=== PATIENT | female | born 1950 | race Caucasian/White ===

== ENCOUNTER 2018-06-02 10:58 | Day surgery (SDC) | payer MEDICARE ==
[~2018-06-02] VITALS: Ht 160 cm; Wt 140.5 kg
--- NOTE | ~2018-06-02 | OP ---
PATIENT NAME: NEO PASCUAL MEDICAL RECORD: [id number] :48 LOCATION:[facility] ADMISSION DATE: SURGEON: KALYANI DOBBS DO DATE OF OPERATION: 06/02/2018 PROCEDURE: Colonoscopy with polypectomy. INDICATIONS FOR PROCEDURE: Screening for colorectal cancer. SCOPE: Olympus video pediatric colonoscope. MEDICATIONS: Propofol 800 mg IV per anesthesia. WITHDRAWAL TIME: 21 minutes. ESTIMATED BLOOD LOSS: Minimal. COMPLICATIONS: None. FINDINGS: Informed consent was given. The patient was made comfortable with the above medication. After reaching an adequate level of sedation by slow IV push, the patient was placed on her left side. A digital rectal examination was performed and was normal. The endoscope was then advanced under direct visualization through the rectum to the cecum, confirmed by the presence of the appendiceal orifice and ileocecal valve. In the cecum, within the appendiceal orifice itself, there was a polyp, which measured approximately 1 cm in size. It was buried somewhat beneath folds within the orifice itself. A saline injection was performed to lift the polyp for better visualization of the borders as well as to lift it off the wall of the colon. Once adequate lift was obtained, a hot snare was used to resect this polyp in 2 pieces. There was another polyp in the ascending colon, which was a benign appearing polyp, which was diminutive. It was removed using hot forceps in 1 piece. 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 Retroflexion was performed in the rectum with grade I internal hemorrhoids. No active bleeding. The endoscope was withdrawn from the patient. The patient tolerated the procedure well and there were no complications. IMPRESSION: 1. Two polyps as described above, removed using a combination of EMR technique and hot forceps. 2. Grade I internal hemorrhoids without bleeding. 3. Melanosis coli. PLAN AND RECOMMENDATIONS: 1. Discharge home when recovery parameters are met. 2. Follow up biopsy specimen results. 3. High fiber diet. 4. Continue current medications. 5. Recall colonoscopy in 2-3 years based on size, number of polyps, and location of polyps removed on today's examination. TRANSINT:[id number] Voice Confirmation ID: [id number] DOCUMENT ID: [id number] OPERATIVE REPORT [id number] NEO PASCUAL KALYANI DOBBS DO CC: [id number] DICTATION DATE: 06/02/18 1346 TERMITE CONTROL TECHNICIAN: 06/02/[address] [facility] [address] [employer] [place]901
[2018-06-02 11:22] LABS: HEMATOCRIT 37.9 % (36.0-48.0); HEMOGLOBIN 11.8 g/dL (12-16); MCH 25.8 pg (26.0-34.0); MCHC 31.1 g/dL (31.0-37.0); MCV 82.8 fL (80.0-100.0); MEAN PLATELET VOLUME 9.4 fL (7.4-10.4); RBC 4.58 10x6/uL (4.00-5.40); RDW 16.4 % (11.5-14.5); WBC 9.2 10x3/uL (4.8-10.8)
[2018-06-02 11:35] LABS: INR 1.17 (0.85-1.17); PROTIME 14.4 SECONDS (11.6-15.0)
[2018-06-02 11:36] LABS: APTT 34.7 SECONDS (22.8-39.4)
[2018-06-02] MEDS ORDERED: SAPHRIS5 MG SL (11:42)
[2018-06-02] MEDS ORDERED: ZANAFLEX4 MG PO (11:43)
[2018-06-02] MEDS ORDERED: TRAZODONE HCL150 MG PO (11:44)
[2018-06-02] MEDS ORDERED: LIPITOR10 MG PO (11:44)
[2018-06-02] MEDS ORDERED: ALENDRONAT70 MG/75 M PO (11:45)
[2018-06-02] MEDS ORDERED: SUPER B-COMPLEX PO (11:46)
[2018-06-02] MEDS ORDERED: [UNRECOGNIZED DRUG - REMARK] (11:47)
[2018-06-02] MEDS ORDERED: CALCIUM 600 +1 EAC3 PO (11:47)
[2018-06-02] MEDS ORDERED: OMEPRAZOLE20 M1 PO (11:48)
[2018-06-02] MEDS ORDERED: VESICARE10 MG PO (11:48)
[2018-06-02] MEDS ORDERED: MOVANTIK25 MG PO (11:49)
[2018-06-02] MEDS ORDERED: CYMBALTA60 MG PO (11:49)
[2018-06-02] MEDS ORDERED: XARELTO20 MG (11:49)
[2018-06-02] MEDS ORDERED: CARAFATE1 G PO (11:50)
[2018-06-02] MEDS ORDERED: GLIMEPIRIDE4 MG PO (11:50)
[2018-06-02] MEDS ORDERED: GLUCOPHAGE850 MG PO (11:50)
[2018-06-02] MEDS ORDERED: TRULICITY1.5 MG/0.5 SC (11:51)
[2018-06-02] MEDS ORDERED: LEVEMIR IN100 UNITS/ SC (11:52)
[2018-06-02] MEDS ORDERED: MYLANTA / MAALO30 ML PO (11:53)
[2018-06-02] MEDS ORDERED: HYDROCODON-ACE1 EA10 PO (11:54)
[2018-06-02 11:55] LABS: CALC OSMOLALITY 286 mosm/kg (275-300); CALCIUM 8.6 mg/dL (8.5-10.1); CARBON DIOXIDE 27.2 mmol/L (21.0-32.0); CHLORIDE - SERUM 104 mmol/L (98-107); CREATININE - SERUM 0.7 mg/dL (0.6-1.3); GLUCOSE 155 mg/dL (74-106); POTASSIUM - SERUM 3.9 mmol/L (3.5-5.1); SODIUM 143 mmol/L (136-145); UREA NITROGEN 9 mg/dL (7-18); eGFR NON AFRICAN AMERICAN 88 mL/min (90-120)
[2018-06-02 12:06] VITALS: BP 151/86; Ht 160 cm; Wt 140.5 kg
== END 2018-06-02 14:36 | disposition home or self-care (01) ==
LOC: D.OPS 10:58
PROVIDERS: Anesthesiology; ATTEND Internal Medicine Gastroenterology
DX: Z12.11 Encounter for screening for malignant neoplasm of colon (principal); D12.0 Benign neoplasm of cecum; K63.5 Polyp of colon; K64.0 First degree hemorrhoids; K63.89 Other specified diseases of intestine; Z01.812 Encounter for preprocedural laboratory examination

== ENCOUNTER → 2018-06-04 05:28 | Day surgery (SDC) | payer MEDICARE ==
[2018-06-02 12:06] VITALS: BMI 54.8
[~2018-06-04 05:28] MED LIST: ALENDRONAT70 MG/75 M PO; CALCIUM 600 +1 EAC3 PO; CARAFATE1 G PO; CYMBALTA60 MG PO; GLIMEPIRIDE4 MG PO; GLUCOPHAGE850 MG PO; HYDROCODON-ACE1 EA10 PO; LEVEMIR IN100 UNITS/ SC; LIPITOR10 MG PO; MOVANTIK25 MG PO; MYLANTA / MAALO30 ML PO; OMEPRAZOLE20 M1 PO; SAPHRIS5 MG SL; SUPER B-COMPLEX PO; TRAZODONE HCL150 MG PO; TRULICITY1.5 MG/0.5 SC; VESICARE10 MG PO; XARELTO20 MG; ZANAFLEX4 MG PO; [UNRECOGNIZED DRUG - REMARK]
[2018-06-04 06:44] LABS: BASOPHILS 0.3 % (0-2); EOSINOPHILS 1.1 % (0-7); HEMATOCRIT 34.9 % (36.0-48.0); HEMOGLOBIN 10.7 g/dL (12-16); IMMATURE GRANULOCYTES 0.1 % (0-5); LYMPHOCYTES 19.3 % (15-50); MCH 25.7 pg (26.0-34.0); MCHC 30.7 g/dL (31.0-37.0); MCV 83.7 fL (80.0-100.0); MEAN PLATELET VOLUME 10.1 fL (7.4-10.4); MONOCYTES 8.2 % (2-11); PLATELET COUNT 171 10x3/uL (130-400); RBC 4.17 10x6/uL (4.00-5.40); RDW 16.1 % (11.5-14.5); WBC 7.4 10x3/uL (4.8-10.8)
[2018-06-04 06:50] LABS: APTT 36.8 SECONDS (22.8-39.4); INR 1.13 (0.85-1.17)
[2018-06-04 07:01] LABS: ALBUMIN 3.3 g/dL (3.4-5.0); ALKALINE PHOSPHATASE 83 U/L (46-116); ALT (SGPT) 34 U/L (10-68); BILIRUBIN - TOTAL 0.28 mg/dL (0.2-1.3); CALC OSMOLALITY 281 mosm/kg (275-300); CALCIUM 8.8 mg/dL (8.5-10.1); CARBON DIOXIDE 26.1 mmol/L (21.0-32.0); CHLORIDE - SERUM 102 mmol/L (98-107); CREATININE - SERUM 0.6 mg/dL (0.6-1.3); GLUCOSE 173 mg/dL (74-106); POTASSIUM - SERUM 3.8 mmol/L (3.5-5.1); PROTEIN - SERUM 6.7 g/dL (6.4-8.2); SODIUM 139 mmol/L (136-145); eGFR NON AFRICAN AMERICAN > 90 mL/min (90-120)
[2018-06-04 07:04] LABS: UREA NITROGEN 12 mg/dL (7-18)
== END | disposition home or self-care (01) ==
LOC: D.OPS 05:28
PROVIDERS: Anesthesiology; ATTEND Internal Medicine Gastroenterology
DX: R12 Heartburn (principal); R11.2 Nausea with vomiting, unspecified; K21.0 Gastro-esophageal reflux disease with esophagitis; K29.70 Gastritis, unspecified, without bleeding; K44.9 Diaphragmatic hernia without obstruction or gangrene

== ENCOUNTER 2018-06-04 05:50 | Day surgery (SDC) | payer MEDICARE ==
[~2018-06-04] VITALS: Ht 160 cm; Wt 140.5 kg
--- NOTE | ~2018-06-04 | OP ---
PATIENT NAME: NEO PASCUAL MEDICAL RECORD: [id number] :48 LOCATION:[facility] ADMISSION DATE: SURGEON: KALYANI DOBBS DO DATE OF OPERATION: 06/04/2018 PROCEDURE: EGD with biopsies. INDICATIONS FOR PROCEDURE: Heartburn, nausea, vomiting, epigastric pain. SCOPE: Olympus video gastroscope. MEDICATIONS: Propofol 160 mg IV per anesthesia. ESTIMATED BLOOD LOSS: Minimal. COMPLICATIONS: None. FINDINGS: Informed consent was given. The patient was made comfortable with the above medication. After reaching an adequate level of sedation by slow IV push, the patient was placed in the left side. The endoscope was advanced under direct visualization through the mouth to the second portion of the duodenum. The upper, middle, and lower thirds of the esophagus appeared normal. At the GE junction, there was evidence of LA class A reflux induced esophagitis with a few ulcerations. A cold forceps biopsy was taken of this site to submit for histology. The endoscope was advanced beyond the GE junction into the stomach and retroflexed to view the cardia, where a very small hiatal hernia of the sliding type was present. The fundus appeared normal. Throughout the body and antrum of the stomach, there were patchy areas of erythema and granularity consistent with gastritis. In the prepyloric region, there were a few inflammatory reactive-appearing polyps. A biopsy was taken of one of these sites to submit for histology. Random cold forceps biopsies were taken from the antrum and incisura to submit for histopathology and to rule out the presence of H. pylori. The endoscope was advanced beyond the pylorus into the duodenum which appeared normal down to the second portion. The endoscope was then withdrawn from the patient. The patient tolerated the procedure well and there were no complications. IMPRESSIONS: 1. LA class A reflux-induced esophagitis with a few ulcerations. 2. Small sliding hiatal hernia. 3. Gastritis. 4. Reactive gastric polyps, which were biopsied. PLAN AND RECOMMENDATIONS: 1. Discharge home when recovery parameters are met. 2. GERD diet and reflux precautions. 3. Continue current medications, but increase omeprazole to 40 mg daily. 4. Gastric emptying scan regarding the ongoing abdominal pain and nausea and vomiting. 5. Follow up biopsies and treat if indicated for H. pylori. TRANSINT:[id number] Voice Confirmation ID: [id number] DOCUMENT ID: [id number] OPERATIVE REPORT [id number] NEO PASCUAL NATHAN A DO CC: [id number] DICTATION DATE: 06/04/18 0806 COMMUTATOR REPAIRER: 06/04/18 1126 [facility] 06/04/18 [place] [id number] [place] [id number]
[2018-06-04 06:22] VITALS: Ht 160 cm; Wt 140.5 kg
--- NOTE | 2018-06-04 08:58 | NUR ---
PT IN PERSONAL WC WITHOUT COMPLAINTS. VSS. TOLERATING FULL LIQUIDS. IC DC'D INTACT. DISCHARGE INSTRUCTIONS GIVEN AND VERBALIZED AN UNDERSTANDING.
== END 2018-06-04 08:50 | disposition home or self-care (01) ==
LOC: D.OPS 05:50
PROVIDERS: ATTEND Internal Medicine Gastroenterology
DX: K21.0 Gastro-esophageal reflux disease with esophagitis (principal); K44.9 Diaphragmatic hernia without obstruction or gangrene; K22.10 Ulcer of esophagus without bleeding; K29.50 Unspecified chronic gastritis without bleeding; K31.7 Polyp of stomach and duodenum; Z01.812 Encounter for preprocedural laboratory examination

== ENCOUNTER 2019-12-08 11:46 | Inpatient (IN) | payer MEDICARE ==
[~2019-12-08] VITALS: Ht 160 cm; Wt 141.8 kg
[2019-12-08 15:04] LABS: CALC OSMOLALITY 273 mosm/kg (275-300); CALCIUM 8.3 mg/dL (8.5-10.1); CARBON DIOXIDE 26.5 mmol/L (21.0-32.0); CHLORIDE - SERUM 105 mmol/L (98-107); CREATININE - SERUM 0.8 mg/dL (0.6-1.3); POTASSIUM - SERUM 3.9 mmol/L (3.5-5.1); SODIUM 137 mmol/L (136-145); UREA NITROGEN 12 mg/dL (7-18); eGFR NON AFRICAN AMERICAN 75 mL/min (90-120)
[2019-12-08 15:05] LABS: GLUCOSE 102 mg/dL (74-106)
[2019-12-08 15:07] LABS: ALBUMIN 3.2 g/dL (3.4-5.0); ALKALINE PHOSPHATASE 63 U/L (30-120); ALT (SGPT) 18 U/L (10-68); BASOPHILS 0.1 % (0-2); BILIRUBIN - TOTAL 0.22 mg/dL (0.2-1.3); EOSINOPHILS 0.7 % (0-7); HEMATOCRIT 23.3 % (36.0-48.0); IMMATURE GRANULOCYTES 0.3 % (0-5); LYMPHOCYTES 12.8 % (15-50); MCH 21.3 pg (26.0-34.0); MCV 78.7 fL (80.0-100.0); MEAN PLATELET VOLUME 9.3 fL (7.4-10.4); MONOCYTES 9.5 % (2-11); NEUTROPHILS 76.6 % (40-80); PLATELET COUNT 203 10x3/uL (130-400); PROTEIN - SERUM 6.5 g/dL (6.4-8.2); RBC 2.96 10x6/uL (4.00-5.40); RDW 17.9 % (11.5-14.5); WBC 7.4 10x3/uL (4.8-10.8)
[2019-12-08 15:10] LABS: HEMOGLOBIN 6.3 g/dL (12-16)
[2019-12-08 15:36] VITALS: BP 155/55; BMI 55.3
--- NOTE | 2019-12-08 17:36 | NUR ---
STARTED PATIENT BLOOD IN RT HAND. NO S/SX OF DISTRESSNO NEEDS, PT HAS DINNER TRAY IN FRONT OF HER, CONTINUE WITH PLAN OF CARE
[2019-12-08 18:09] VITALS: BP 160/62
[2019-12-08 19:35] LABS: % SATURATION 3 % (15-55); IRON 13 ug/dl (35-150); TOTAL IRON BIND CAPACITY 407 ug/dl (260-445); UNSAT IRON BIND CAPACITY 394 ug/dl (150-375)
[2019-12-08 20:00] VITALS: BP 145/60
[2019-12-08 21:26] VITALS: Ht 160 cm; Wt 141.8 kg
[2019-12-09 09:21] VITALS: BP 186/60
--- NOTE | 2019-12-09 10:29 | NUR ---
ASSESSMENT PER FLOW SHEET. PATIENT IS NPO FOR PROCEDURE. PAIN MEDS ORDERED FOR PAIN.FALL PREVENTION WITH SHUBHAM MAT
[2019-12-09 11:53] LABS: BASOPHILS 0.2 % (0-2); EOSINOPHILS 0.3 % (0-7); IMMATURE GRANULOCYTES 0.2 % (0-5); LYMPHOCYTES 12.8 % (15-50); MCH 23.1 pg (26.0-34.0); MCHC 29.1 g/dL (31.0-37.0); MCV 79.4 fL (80.0-100.0); MEAN PLATELET VOLUME 8.9 fL (7.4-10.4); MONOCYTES 9.8 % (2-11); NEUTROPHILS 76.7 % (40-80); PLATELET COUNT 172 10x3/uL (130-400); RBC 3.55 10x6/uL (4.00-5.40); RDW 17.4 % (11.5-14.5); WBC 6.6 10x3/uL (4.8-10.8)
[2019-12-09 11:55] LABS: HEMOGLOBIN 8.2 g/dL (12-16)
[2019-12-09 11:56] LABS: HEMATOCRIT 28.2 % (36.0-48.0)
[2019-12-09 12:38] VITALS: BP 154/70
--- NOTE | 2019-12-09 16:09 | NUR ---
EKG IN CHART. DONE BEFORE GI PROCEDURE
[2019-12-10 00:21] VITALS: BP 141/63
[2019-12-10 04:00] VITALS: BP 108/57
--- NOTE | 2019-12-10 05:56 | NUR ---
I have reviewed this patient and I concur with the Shift Assessment completed by the Licensed Practical Nurse today this shift.
[2019-12-10 08:25] LABS: BASOPHILS 0.1 % (0-2); EOSINOPHILS 0.3 % (0-7); HEMATOCRIT 30.6 % (36.0-48.0); HEMOGLOBIN 8.9 g/dL (12-16); IMMATURE GRANULOCYTES 0.1 % (0-5); LYMPHOCYTES 11.4 % (15-50); MCH 23.2 pg (26.0-34.0); MCHC 29.1 g/dL (31.0-37.0); MCV 79.7 fL (80.0-100.0); MEAN PLATELET VOLUME 8.8 fL (7.4-10.4); MONOCYTES 7.3 % (2-11); NEUTROPHILS 80.8 % (40-80); PLATELET COUNT 157 10x3/uL (130-400); RBC 3.84 10x6/uL (4.00-5.40); WBC 7.3 10x3/uL (4.8-10.8)
[2019-12-10 08:35] LABS: CALC OSMOLALITY 280 mosm/kg (275-300); CALCIUM 8.4 mg/dL (8.5-10.1); CARBON DIOXIDE 29.2 mmol/L (21.0-32.0); CHLORIDE - SERUM 105 mmol/L (98-107); CREATININE - SERUM 0.6 mg/dL (0.6-1.3); POTASSIUM - SERUM 3.8 mmol/L (3.5-5.1); SODIUM 140 mmol/L (136-145); UREA NITROGEN 11 mg/dL (7-18); eGFR NON AFRICAN AMERICAN > 90 mL/min (90-120)
[2019-12-10 08:36] LABS: GLUCOSE 151 mg/dL (74-106)
[2019-12-10 09:02] VITALS: BP 142/78
[2019-12-10 11:51] VITALS: BP 191/70
[2019-12-10 17:50] VITALS: BP 154/62
--- NOTE | 2019-12-10 19:50 | NUR ---
0700 BEDSIDE REPORT RECEIVED IN BED WITH HOB ELEVATED 40 DEGREES ASSISTED UP TO BEDSIDE COMMODE ASSESSMENT COMPLETE
--- NOTE | 2019-12-10 19:52 | NUR ---
1045 SMALL SPECIMEN OF STOOL COLLECTED AND SENT TO LAB
--- NOTE | 2019-12-10 19:52 | NUR ---
1815 LEFT HAND IV INFILTRATED STOPPED INFUSION AND WILL START ANOTHER IV SITE
[2019-12-10 20:00] VITALS: BP 115/60
--- NOTE | 2019-12-10 20:00 | NUR ---
PATIENT RESTING IN BED WATCHING TV. NO S/S OF ACUTE DISTRESS. NO C/O AT THIS TIME. PATIENT USES HOME BIPAP WHEN SLEEPING. PATEINT HAS NO IV AT THIS TIME, WILL TRY TO PLACE ANOTHER. PATIENT IS UP WITH ASSIST, BUT IS REFUSING THE BEDSIDE COMMODE BECAUSE "IT PINCHES ME TOO BAD." PATIENT USES THE BEDPAN. CALL LIGHT WITHIN REACH. WILL CONTINUE TO MONITOR.
--- NOTE | 2019-12-10 21:40 | NUR ---
ANDREINA, RN-CHARGE, GOT AN IV IN LEFT FOREARM. CALL LIGHT WITHIN REACH. WILL CONTINUE TO MONITOR.
[2019-12-11] VITALS: BP 142/45
[2019-12-11 04:00] VITALS: BP 168/57
--- NOTE | 2019-12-11 04:24 | NUR ---
I have reviewed this patient and I concur with the Shift Assessment completed by the Licensed Practical Nurse today this shift.
--- NOTE | 2019-12-11 09:00 | NUR ---
ALERT AND ORIENTED X3.LUNGS CTA WITH EDEMA 1+ NOTED TO BLE. NO DISTRESS NOTED WITH IV INTACT TO LEFT F/A S/L WITH NO S/S OF INFECTION/INFILTRATON. DENIES ANY PAIN OR DISCOMFORT AT TH IS TIME.
[2019-12-11 09:03] VITALS: BP 151/65
--- NOTE | 2019-12-11 10:15 | MORECARE ---
CASE MANAGEMENT DISCHARGE SUMMARY PATIENT: NEO PASCUAL UNIT: [id number] ADM DATE: 12/08/19 AGE: 69 : 49 SEX: F ROOM/BED: D.8356 AUTHOR: MARYDOC PHYSICIAN: REFERRING PHYSICIAN: RAHEEM LOPEZ MD DATE OF SERVICE: 12/11/19 Discharge Plan Patient Name: NEO PASCUAL Facility: [facility]:[place] : 1950 Planned Disposition: Assisted Living Anticipated Discharge Date: Discharge Date: Expected LOS: Initial Reviewer: [email or web address] Initial Review Date: 12/08/2019 Generated: 12/11/19 11:15 am Comments DCP- Discharge Planning Updated by [email or web address]: Aurora Chang on 12/11/19 9:[address] Patient Name: NEO PASCUAL Admission Status: Elective Accout number: [id number] Admission Date: 12-08-2019 : 1950 Admission Diagnosis:WEAKNESS Attending: RAHEEM LOPEZ Current LOS: 3 Anticipated DC Date: Planned Disposition: Assisted Living Primary Insurance: MEDICARE A & B Discharge Planning Comments: CM met with patient to complete initial dc planning assessment. CM educated patient on the CM role and verbal consent given by patient to complete assessment. Patient lives at [facility], which it is an Assisted Living. At discharge patient plans to return home and feels this is a safe discharge. CM discussed availability of home health, rehab services, and medical equipment. She stated that they help her with whatever she needs. She has an Electric Wheelchair, shower bench, O2 that she wears at night (Aero care) CPAP machine ( [employer]ero care) She will need transportation back to her home. I will call [facility] to set that up. She did not want home health. IMM served and signed. Patient denied known discharge needs at this time. CM will continue to follow and will assist as needed with dc plans/needs. Asbestos Brake Lining Finisher: Aurora Chang DCPIA - Discharge Planning Initial Assessment Updated by [email or web address]: Aurora Chang on 12/11/19 10:10 am * Is the patient Alert and Oriented? Yes * How many steps to enter\exit or inside your home? * PCP DR STARK * Pharmacy [facility] * Preadmission Environment Assisted Living * Facility Name [facility] * ADLs Partial Dependent * Partial ADLs (Assistance needed) Bathing Medication Management Toileting Transfers * Equipment CPAP Oxygen Power Chair or Electric Scooter Shower Chair * List name and contact numbers for known caregivers / representatives who currently or will assist patient after discharge: YESI [phone] * Verbal permission to speak to the caregivers and representatives has been obtained from the patient. N/A * Community resources currently utilized Assisted Living * Please name any agencies selected above. [facility] * Additional services required to return to the preadmission environment? No * Can the patient safely return to the preadmission environment? Yes * Has this patient been hospitalized within the prior 30 days at any hospital? No Patient Name: NEO PASCUAL Page [phone] at 1015 All edits/amendments must be made on the electronic document DICTATION DATE: 12/11/19 1015 MOBILE DESIGNER: ANASTASIYA 12/11/19 1015 RPT#: [id number] DC DATE: STATUS: ADM IN [facility] [address] [place] [address] END OF REPORT
[2019-12-11 10:52] LABS: BASOPHILS 0.1 % (0-2); EOSINOPHILS 0.5 % (0-7); HEMATOCRIT 32.5 % (36.0-48.0); HEMOGLOBIN 9.3 g/dL (12-16); IMMATURE GRANULOCYTES 0.1 % (0-5); MCH 23.2 pg (26.0-34.0); MCHC 28.6 g/dL (31.0-37.0); MONOCYTES 6.9 % (2-11); NEUTROPHILS 79.4 % (40-80); PLATELET COUNT 155 10x3/uL (130-400); RBC 4.01 10x6/uL (4.00-5.40); RDW 18.2 % (11.5-14.5); WBC 8.3 10x3/uL (4.8-10.8)
--- NOTE | 2019-12-11 10:53 | NUR ---
SPOKE WITH DR DOBBS. D/C OK. THEY WILL CONTACT PT FOR NEEDED F/U.
--- NOTE | 2019-12-11 11:02 | MORECARE ---
CASE MANAGEMENT DISCHARGE SUMMARY PATIENT: NEO PASCUAL UNIT: [id number] ADM DATE: 12/08/19 AGE: 69 : 49 SEX: F ROOM/BED: D.2218 AUTHOR: MARYDOC PHYSICIAN: REFERRING PHYSICIAN: RAHEEM LOPEZ MD DATE OF SERVICE: 12/11/19 Discharge Plan Patient Name: NEO PASCUAL Facility: [facility]:[place] : 1950 Planned Disposition: Assisted Living Anticipated Discharge Date: Discharge Date: Expected LOS: Initial Reviewer: [email or web address] Initial Review Date: 12/08/2019 Generated: 12/11/19 12:01 pm Comments DCP- Discharge Planning Updated by [email or web address]: Aurora Chang on 12/11/19 9:[address] SCAT HAS BEEN SET UP FOR THE PATIENT TO TRANSPORT HER HOME CONF # [id number] DCP- Discharge Planning Updated by [email or web address]: Aurora Chang on 12/11/19 9:[address] Patient Name: NEO PASCUAL Admission Status: Elective Accout number: [id number] Admission Date: 12-08-2019 : 1950 Admission Diagnosis:WEAKNESS Attending: RAHEEM LOPEZ Current LOS: 3 Anticipated DC Date: Planned Disposition: Assisted Living Primary Insurance: MEDICARE A & B Discharge Planning Comments: CM met with patient to complete initial dc planning assessment. CM educated patient on the CM role and verbal consent given by patient to complete assessment. Patient lives at [facility], which it is an Assisted Living. At discharge patient plans to return home and feels this is a safe discharge. CM discussed availability of home health, rehab services, and medical equipment. She stated that they help her with whatever she needs. She has an Electric Wheelchair, shower bench, O2 that she wears at night (Aero care) CPAP machine ( Aero care) She will need transportation back to her home. I will call [facility] to set that up. She did not want home health. IMM served and signed. Patient denied known discharge needs at this time. CM will continue to follow and will assist as needed with dc plans/needs. Behavioral Health Specialist: Aurora Chang DCPIA - Discharge Planning Initial Assessment Updated by [email or web address]: Aurora Chang on 12/11/19 10:10 am * Is the patient Alert and Oriented? Yes * How many steps to enter\exit or inside your home? * PCP DR STARK * Pharmacy [facility] * Preadmission Environment Assisted Living * Facility Name [facility] * ADLs Partial Dependent * Partial ADLs (Assistance needed) Bathing Medication Management Toileting Transfers * Equipment CPAP Oxygen Power Chair or Electric Scooter Shower Chair * List name and contact numbers for known caregivers / representatives who currently or will assist patient after discharge: YESI [phone] * Verbal permission to speak to the caregivers and representatives has been obtained from the patient. N/A * Community resources currently utilized Assisted Living * Please name any agencies selected above. [facility] * Additional services required to return to the preadmission environment? No * Can the patient safely return to the preadmission environment? Yes * Has this patient been hospitalized within the prior 30 days at any hospital? No Coverage Notice Reviewer: [id number] - Aurora Chang Notice Issued Date-Time: 12/11/2019 10:00 Notice Type: IM Discharge Notice Notice Delivered To: Patient Relationship to Patient: Precision Lens Generator Name: Delivery Method: HAND - Hand Delivered Lizet Days: Prior Verbal Notification: Recipient Understood Notice: Yes Recipient Signature: Yes Med Rec Note Co-signed by Attending: Coverage Notice Comment: Last DP export: 12/11/19 9:15 a Patient Name: NEO PASCUAL Page [phone] at 1102 All edits/amendments must be made on the electronic document DICTATION DATE: 12/11/19 110 ELECTRONIC LAB TECHNICIAN: ANASTASIYA 12/11/19 110 RPT#: [id number] DC DATE: STATUS: ADM IN [facility] [address] [place] [address] END OF REPORT
--- NOTE | 2019-12-11 11:48 | NUR ---
Wound care consult: decreased mobility Pt is able to transfer to bedside commode. She has ambulated with PT. She is alert and oriented. No skin breakdown noted.
--- NOTE | 2019-12-11 12:42 | NUR ---
IV DISCONTINUED AND VERBALIZED UNDERSTANDING OF DISCHARGE INSTRUCTIONS. DISCHARGED UNDER CARE OF TRANSPORTATION. STABLE ATTIME OF DISCHARGE.
--- NOTE | 2019-12-14 09:12 | MORECARE ---
CASE MANAGEMENT DISCHARGE SUMMARY PATIENT: NEO PASCUAL UNIT: [id number] ADM DATE: 12/08/19 AGE: 69 : 49 SEX: F ROOM/BED: D.2217 AUTHOR: MARY,DOC PHYSICIAN: REFERRING PHYSICIAN: RAHEEM LOPEZ MD DATE OF SERVICE: 12/14/19 Discharge Plan Patient Name: NEO PASCUAL Facility: [facility]:[place] : 1950 Planned Disposition: Assisted Living Anticipated Discharge Date: Discharge Date: 12/11/2019 Expected LOS: Initial Reviewer: [email or web address] Initial Review Date: 12/08/2019 Generated: 12/14/19 10:11 am Comments DCP- Discharge Planning Updated by [email or web address]: Aurora Chang on 12/11/19 9:[address] SCAT HAS BEEN SET UP FOR THE PATIENT TO TRANSPORT HER HOME CONF # [id number] DCP- Discharge Planning Updated by [email or web address]: Aurora Chang on 12/11/19 9:[address] Patient Name: NEO PASCUAL Admission Status: Elective Accout number: [id number] Admission Date: 12-08-2019 : 1950 Admission Diagnosis:WEAKNESS Attending: RAHEEM LOPEZ Current LOS: 3 Anticipated DC Date: Planned Disposition: Assisted Living Primary Insurance: MEDICARE A & B Discharge Planning Comments: CM met with patient to complete initial dc planning assessment. CM educated patient on the CM role and verbal consent given by patient to complete assessment. Patient lives at [facility], which it is an Assisted Living. At discharge patient plans to return home and feels this is a safe discharge. CM discussed availability of home health, rehab services, and medical equipment. She stated that they help her with whatever she needs. She has an Electric Wheelchair, shower bench, O2 that she wears at night (Aero care) CPAP machine ( Aero care) She will need transportation back to her home. I will call [facility] to set that up. She did not want home health. IMM served and signed. Patient denied known discharge needs at this time. CM will continue to follow and will assist as needed with dc plans/needs. Catholic Priest: Aurora Chang DCPIA - Discharge Planning Initial Assessment Updated by [email or web address]: Aurora Chang on 12/11/19 10:10 am * Is the patient Alert and Oriented? Yes * How many steps to enter\exit or inside your home? * PCP DR STARK * Pharmacy [facility] * Preadmission Environment Assisted Living * Facility Name [facility] * ADLs Partial Dependent * Partial ADLs (Assistance needed) Bathing Medication Management Toileting Transfers * Equipment CPAP Oxygen Power Chair or Electric Scooter Shower Chair * List name and contact numbers for known caregivers / representatives who currently or will assist patient after discharge: YESI [phone] * Verbal permission to speak to the caregivers and representatives has been obtained from the patient. N/A * Community resources currently utilized Assisted Living * Please name any agencies selected above. [facility] * Additional services required to return to the preadmission environment? No * Can the patient safely return to the preadmission environment? Yes * Has this patient been hospitalized within the prior 30 days at any hospital? No Coverage Notice Reviewer: [id number] - Aurora Chang Notice Issued Date-Time: 12/11/2019 10:00 Notice Type: IM Discharge Notice Notice Delivered To: Patient Relationship to Patient: Product Safety Coordinator Name: Delivery Method: HAND - Hand Delivered Lizet Days: Prior Verbal Notification: Recipient Understood Notice: Yes Recipient Signature: Yes Med Rec Note Co-signed by Attending: Coverage Notice Comment: Last DP export: 12/11/19 10:02 a Patient Name: NEO PASCUAL Page 11235 at 0912 All edits/amendments must be made on the electronic document DICTATION DATE: 12/14/19911 PATIENT CONSUMER MARKETER: ANASTASIYA 12/14/19911 RPT#: [id number] DC DATE:12/11/19 STATUS: DIS IN [facility] [address] [place] [address] END OF REPORT
== END 2019-12-11 12:50 | DRG 812 ==
LOC: D.SDCHOLD 11:46 → D.MS 13:18
PROVIDERS: Internal Medicine Gastroenterology; ADMIT Legal Medicine; ATTEND Legal Medicine
PROC: 0W3P8ZZ Control Bleeding in Gastrointestinal Tract, Via Natural or Artificial Opening Endoscopic (ICD-10-PCS; 2019-12-09)
PROC: 3E0G8GC Introduction of Other Therapeutic Substance into Upper GI, Via Natural or Artificial Opening Endoscopic (ICD-10-PCS; principal; 2019-12-09 15:16)
DX: D50.9 Iron deficiency anemia, unspecified (principal); K21.00 Gastro-esophageal reflux disease with esophagitis, without bleeding; E11.9 Type 2 diabetes mellitus without complications; K29.70 Gastritis, unspecified, without bleeding